=== PATIENT | male | born 1960 | race Caucasian/White ===

== ENCOUNTER 2019-11-24 04:28 | Emergency (ER) | payer MEDICAID ==
[~2019-11-24] VITALS: Ht 170.2 cm; Wt 81.0 kg
[2019-11-24] MEDS ORDERED: FAMOTIDINE 20MG/2ML VIAL IV ONE (05:00)
[2019-11-24] MEDS ORDERED: SODIUM CHLORIDE 0.9% 1,000 ML IV ONE (05:00)
[2019-11-24] MEDS ORDERED: ONDANSETRON HCL 4MG/2ML INJ IV ONE ×2 (05:00→05:30)
[2019-11-24 05:03] LABS: BASOPHILS % 0.8 % (0.0-2.0); HEMATOCRIT. 41.5 % (42.0-52.0); LYMPHOCYTES % 24.5 % (20.0-50.0); MEAN PLATELET VOLUME 8.5 fl (7.4-10.4); MONOCYTES % 5.9 % (2.0-8.0); NEUTROPHILS % 67.8 % (40.0-76.0); PLATELET 281 x1000/uL (130-400); RED CELL DISTRIBUTION WIDTH 21.7 % (11.6-14.6)
[2019-11-24 05:09] LABS: CHLORIDE 104 mEq/L (98-107)
[2019-11-24 05:10] LABS: INR 0.9
[2019-11-24] MEDS ORDERED: MORPHINE SULFATE 4 MG/ML CPJ (NOT FOR IM USE) IV ONE ×2 (05:30→08:30)
[2019-11-24 06:27] LABS: CLARITY URINE CLEAR (CLEAR); COLOR URINE YELLOW (YELLOW); KETONES URINE TRACE (NEGATIVE); LEUKOCYTE ESTERASE URINE NEGATIVE (NEGATIVE); NITRITE URINE NEGATIVE (NEGATIVE); OCCULT BLOOD URINE 1+ (NEGATIVE); PH URINE 6.5 (4.5-8.0); PROTEIN URINE NEGATIVE (NEGATIVE); SPECIFIC GRAVITY URINE 1.021 (1.005-1.030); UROBILINOGEN URINE 0.2 E.U./dL (0.2-1.0)
[2019-11-24] MEDS ORDERED: KCL 20MEQ/100ML PREMIX 100 ML IV ONE (07:00)
[2019-11-24] MEDS ORDERED: IOHEXOL-300 100 ML BOTTLE ONE (09:13)
[2019-11-24 11:15] VITALS: BP 128/75
== END 2019-11-24 11:24 | disposition home or self-care (01) ==
LOC: ER 04:28
DX: K29.00 Acute gastritis without bleeding (principal)
CPT/HCPCS: 36415; 74177; 76700; 80053; 81003; 83690; 84484; 85025; 85610; 93005; 96361; 96374; 96375; 96376; 99285; J2270; J2405; J3480; J3490; J7030; Q9967; 96365

== ENCOUNTER 2020-06-10 10:35 | Emergency (ER) | payer MEDICAID ==
[~2020-06-10] VITALS: Ht 170.2 cm; Wt 87.0 kg
[2020-06-10] MEDS ORDERED: ONDANSETRON HCL 4MG/2ML INJ IV STA (10:51)
[2020-06-10] MEDS ORDERED: MORPHINE SULFATE 4 MG/ML CPJ (NOT FOR IM USE) IV STA (10:51)
[2020-06-10 11:18] LABS: BASOPHILS % 0.6 % (0.0-2.0); EOSINOPHILS % 0.2 % (0.0-5.0); HEMATOCRIT. 29.7 % (42.0-52.0); HEMOGLOBIN. 9.5 g/dL (14.0-18.0); LYMPHOCYTES % 14.2 % (20.0-50.0); MEAN CORPUSCULAR HEMOGLOBIN 23.9 pg (28.0-32.0); MEAN CORPUSCULAR VOLUME 74.9 fL (80.0-94.0); MEAN PLATELET VOLUME 7.8 fl (7.4-10.4); MONOCYTES % 8.8 % (2.0-8.0); NEUTROPHILS % 76.2 % (40.0-76.0); PLATELET 368 x1000/uL (130-400); RED BLOOD CELL COUNT 3.97 mill/uL (4.7-6.1); RED CELL DISTRIBUTION WIDTH 16.6 % (11.6-14.6)
[2020-06-10 11:30] LABS: CHLORIDE 106 mEq/L (98-107)
[2020-06-10 12:55] LABS: CLARITY URINE CLEAR (CLEAR); COLOR URINE YELLOW (YELLOW); KETONES URINE NEGATIVE (NEGATIVE); LEUKOCYTE ESTERASE URINE NEGATIVE (NEGATIVE); NITRITE URINE NEGATIVE (NEGATIVE); OCCULT BLOOD URINE NEGATIVE (NEGATIVE); PH URINE 7.5 (4.5-8.0); PROTEIN URINE NEGATIVE (NEGATIVE); SPECIFIC GRAVITY URINE 1.038 (1.005-1.030)
[2020-06-10 13:58] VITALS: BP 106/62
[2020-06-10] MEDS ORDERED: LIDOCAINE HCL 2% JELLY 5ML TOP ONE (14:00)
[2020-06-10] MEDS ORDERED: IOHEXOL-300 100 ML BOTTLE ONE (14:51)
== END 2020-06-10 14:23 | disposition home or self-care (01) ==
LOC: ER 10:35
DX: R10.11 Right upper quadrant pain (principal); I10 Essential (primary) hypertension; Z88.0 Allergy status to penicillin
CPT/HCPCS: 36415; 74177; 80053; 81003; 83690; 84484; 85025; 93005; 96374; 96375; 99285; J2270; J2405; Q9967

== ENCOUNTER → 2021-07-31 | Outpatient (CLI) | payer MEDICAID ==
[~2021-07-31] MED LIST: CHOL2000 PO; DOCU100T MT; FENTANYL CITRATE/PF 50MCG/ML 2ML VIAL ONE; GLYCOPYRROLATE 0.2 MG/ML 2ML VIAL ONE; LEVE500T19 MT; LIDOCAINE HCL 1% 10 MG/ML 10ML VIAL ONE; LORA10TA7 MT; LOSA1TAB40 MT; MIDAZOLAM HCL 2 MG/2 ML VIAL ONE; MONT10TA21 MT; NEOSTIGMINE METHYLSULFATE 1MG/ML 10 ML VIAL ONE; OMEP40CA20 MT; PHENYLEPHRINE HCL 10 MG/ML 1ML (IV VIAL) IV ONE; PROPOFOL 200MG/20ML VIAL IV ONE; ROCURONIUM BROMIDE 10MG/ML VIAL 5ML IV ONE; TAMS-11 PO
== END | disposition home or self-care (01) ==
LOC: LAB 10:13
PROVIDERS: ATTEND Surgery
DX: Z20.822 Contact with and (suspected) exposure to COVID-19 (principal)
CPT/HCPCS: 87426

== ENCOUNTER → 2021-08-01 | Day surgery (SDC) | payer MEDICAID ==
[~2021-08-01] VITALS: Ht 170.2 cm; Wt 79.4 kg
[~2021-08-01] MED LIST changes: +BACITRACIN 15GM TUBE TOP ONE; +BUPIVACAINE HCL/PF 0.5% (5MG/ML) 10ML ONE; +CLINDAMYCIN 900 MG PREMIX 50 ML IV ONE; +FENTANYL CITRATE/PF 50MCG/ML 2ML VIAL IV PRN; -FENTANYL CITRATE/PF 50MCG/ML 2ML VIAL ONE; -GLYCOPYRROLATE 0.2 MG/ML 2ML VIAL ONE; +HYDROCODONE/ACETAMINOPHEN 5/325MG TABLET PO PRN; -LIDOCAINE HCL 1% 10 MG/ML 10ML VIAL ONE; +MEPERIDINE HCL/PF 25MG/ML CPJ IV PRN; -MIDAZOLAM HCL 2 MG/2 ML VIAL ONE; -NEOSTIGMINE METHYLSULFATE 1MG/ML 10 ML VIAL ONE; +ONDANSETRON HCL 4MG/2ML INJ IV PRN; -PHENYLEPHRINE HCL 10 MG/ML 1ML (IV VIAL) IV ONE; -PROPOFOL 200MG/20ML VIAL IV ONE; -ROCURONIUM BROMIDE 10MG/ML VIAL 5ML IV ONE; +SODIUM CHLORIDE 0.9% 1,000 ML IV SCH
[2021-08-01] MEDS: HYDROMORPHONE HCL/PF 2MG/ML CPJ IV PRN ×2 (09:54→10:55)
[2021-08-01 11:25] VITALS: BP 141/91
== END | disposition home or self-care (01) ==
LOC: OR 05:24
PROVIDERS: ATTEND Surgery
DX: K64.9 Unspecified hemorrhoids (principal); I10 Essential (primary) hypertension; E78.00 Pure hypercholesterolemia, unspecified; K21.9 Gastro-esophageal reflux disease without esophagitis; Z79.899 Other long term (current) drug therapy; Z98.890 Other specified postprocedural states; Z88.0 Allergy status to penicillin
CPT/HCPCS: 46250; 82962; 88304; J1170; J2250; J2370; J2704; J2710; J3010; J3490; J7040